=== PATIENT | female | born 1940 | race Caucasian/White ===

== ENCOUNTER 2024-05-07 16:34 | Emergency (ER) | payer OTHER, SELFPAY ==
[2024-05-07 16:36] VITALS: BP 189/91; BP 214/90
[2024-05-07 16:38] VITALS: BP 189/91
[2024-05-07 16:49] LABS: % Basophils 0.8 % (0-2); % Eosinophils 0.8 % (0-6); % Immature Granulocytes 0.2 % (0-0.5); % Lymphocytes 25.5 % (20.5-51.1); % Monocytes 12.6 % (1.7-9.3); % Neutrophils 60.1 % (42.2-75.2); Absolute Basophils 0.1 10^3/uL (0-0.2); Absolute Eosinophils 0.1 10^3/uL (0-0.7); Absolute Lymphocytes 1.6 10^3/uL (1.2-3.4); Absolute Monocytes 0.8 10^3/uL (0.1-0.6); Absolute Neutrophils 3.7 10^3/uL (1.4-6.5); Hemoglobin 13.2 g/dL (12.0-16.0); Mean Corpuscular Hgb 30.1 pg (27.0-31.0); Mean Corpuscular Volume 91.1 fL (81.0-99.0); Mean Platelet Volume 9.6 fL (7.4-10.4); Nucleated Red Blood Cells % 0 %; Platelet Count 195 10^3/uL (130-400); Red Blood Cell Count 4.39 10^6/uL (4.20-5.40); Red Cell Dist. Width 13.6 % (11.5-14.5); White Blood Cell Count 6.1 10^3/uL (4.8-10.8)
[2024-05-07 17:00] VITALS: BP 184/91
--- NOTE | 2024-05-07 17:04 | ED.GENMED ---
History of Present Illness
General
Chief Complaint: Chest Pain
Source: patient
Exam Limitations: none
Time Seen by Provider: 05/07/24 17:03
Nursing documentation reviewed up to this point in time: agreed with
History of Present Illness
History of Present Illness:
83-year-old female presents the emergency room complaining of right-sided chest pain that radiates into her neck that began last night. She notes she has been burping. The pain subsided once she got to the emergency department. She denies any
shortness of breath.
Past History
Past History
ED Past Medical History: Cancer (Thyroid cancer ), HTN, Hypercholesterolemia, NIDDM, Hypothyroidism and Other (Rheumatoid arthritis, Pancreatic cyst, Migraines, IBS, Peripheral Neuropathy)
ED Past Surgical History: Other (Thyroidectomy )
Social History
Tobacco: Non-smoker
Alcohol: None
Personal:
Living: with family
Employment: Retired
Review of Systems
Review of Systems
Allergies reviewed?: Yes
All Other Systems: Not applicable
Constitutional: Reports no symptoms
EENT: Reports no symptoms
Respiratory: Reports no symptoms
Cardiac: Reports chest pain
ABD/GI: Reports abdominal pain and nausea
: Reports no symptoms
Musculoskeletal: Reports no symptoms
Skin: Reports no symptoms
Neurological: Reports no symptoms
Endocrine: Reports no symptoms
Hematologic/Lymphatic: Reports no symptoms
Psychiatric: Reports no symptoms
Phy Exam
Physical Exam
Physical Exam:
Physical Exam
General: no apparent distress, not acutely ill
Neck: supple. no meningeal signs. normal posterior pharynx
Heart: s1/s2 regular rate and rhythm, no murmur. equal radial
pulses.
HEENT: Pupils equal round reactive to light, EOMI
Lungs: no acute respiratory distress. clear bilaterally
Abdomen: normal bowel sounds. not tender. no CVAT
Neuro: alert and oriented. no focal neurological deficits cranial nerves II through XII intact
Skin: no rash
Psychiatric: well kept. interactive and cooperative
Extremities: no edema. no calf tenderness. negative homans. good distal pulses
Scores
Heart Score for Chest Pain Patients
STEMI patient?: No
History: Slightly or Non-Suspicious
ECG: Normal
Age: >/= 65 years
Risk Factors: No Risk Factors
Troponin: </= Normal Limit
Heart Score for Chest Pain Patients: 2
Heart Score Risk: 2.5% MACE over next 6 weeks
Course
Orders/Labs/Results
Orders:
Orders
05/07/24 16:35
Electrocardiogram (*1) Urgent
Reason for Study: Chest Pain
Cardiac Monitoring- Treatment ONCE
EKG- Treatment ONCE
IV Insert/Care/Rem.- Treatment PRN
O2 Therapy [RESP] Urgent
Titrate/Wean O2 to maintain O2 sat greater than (%): 90
Special Instructions: Maintain sats >/=90%
Pulse Ox/spot Check [RESP] Urgent
Quantity: 1
Special Instructions: ON ROOM AIR
05/07/24 16:38
Complete Blood Count/With Diff Urgent
Troponin I Urgent
05/07/24 17:13
US Abdomen Complete/Upper Urgent
Comment:
Reason For Exam: RUQ pain
05/07/24 17:14
Add On- LAB Urgent
Tests Added?: lipase
05/07/24 17:33
Comprehensive Metabolic Panel Urgent
Lipase Urgent
Comment: ADD ON
Abnormal Lab Results
05/07/24 05/07/24
16:38 17:33
Absolute Monos (auto) 0.8 H 10^3/uL
(0.1-0.6)
Monocytes % 12.6 H %
(1.7-9.3)
BUN 18 H mg/dl
(7-17)
05/07/24 16:38
05/07/24 17:33
Vital Signs
Initial and Last Documented VS:
Initial Vital Signs
Temp Pulse Resp BP Pulse Ox
99.0 F 80 17 189/91 97
05/07/24 16:36 05/07/24 16:36 05/07/24 16:36 05/07/24 16:36 05/07/24 16:36
Last Documented Vital Signs
Temp Pulse Resp BP Pulse Ox
99.0 F 67 17 180/69 983
05/07/24 16:36 05/07/24 20:17 05/07/24 20:17 05/07/24 20:17 05/07/24 20:17
MDM/Problems Addressed
Differential Diagnosis Includes:
Pancreatitis, CVA, gastritis, ACS
MDM/Problems Addressed:
83-year-old female with epigastric/right upper quadrant abdominal pain. No acute findings on labs. CT normal. Do not suspect dissection or ACS. Patient stable for discharge. Follow-up with primary care.
*Radiology
Radiology exam reviewed: radiology read reviewed (Ultrasound abdomen no acute findings)
*Pulse Oximetry
Patient hypoxic: no
*EKG
Interpreted by ED Provider?: Yes
EKG Intrepretation Date: 05/07/24
EKG Intrepretation Time: 16:44
Interpretation: abnormal
Comparison EKG: no comparison EKG present
Heart Rate: 56
Rate: bradycardiac
Rhythm: sinus
[place]: normal axis
Interval: normal interval
QRS Pattern: normal QRS
Ischemia: no ischemia
*Attending Radiologist Interpretation
Rate: normal
Interpretation: normal
Heart Rate: 70
Rhythm: sinus
*Critical Care Note
Total Time (30-74mins, 75-104mins- exclusive of procedures): Not Applicable
Patient Management
Social determinants of health affecting care: Living situation and Strong social support
Escalation/DeEscalation of care consider admission/obs:
Admit not indicated
ED Attending Note
-
Portions of this chart may have been created with voice recognition software.� Occasional wrong word or��sound alike� substitutions may have occurred due to the inherent limitations of voice recognition software.
Discharge Plan
Departure
Patient Disposition: Home (Routine Discharge)
Date of Disposition: 05/07/24
Time of Disposition: 20:23
Patient with high blood pressure during this ER visit?: Yes
Condition: Good
Discharge Problem:
Chest pain, Acute epigastric pain
Instructions: Chest Pain DCA Follow Up, BLOOD PRESSURE
Prescriptions:
No Action
levothyroxine [Tirosint] 100 MCG capsule
100 mcg PO DAILY
amlodipine 2.5 MG tablet
2.5 mg PO HS
cyclobenzaprine 10 MG tablet
10 mg PO HS Qty: 5 0RF
Referrals:
Marylou Jimenez MD [Family Provider] - Call in 1-3 days for appt
Interventions
Interventions:
*Risk Screen - Suicide Last Done: 05/07/24 16:36
*General Assessment Last Done: 05/07/24 16:36
*Neglect/Abuse Screening Last Done: 05/07/24 16:36
ED- Fall Risk Assessment Last Done: 05/07/24 16:36
ED- Cardiac Assessment Last Done: 05/07/24 16:36
Discharge Date and Time
Print Language: ANGUILLAN
[2024-05-07 17:10] LABS: Troponin I < 0.012 ng/ml
[2024-05-07 17:57] LABS: ALT (SGPT) 16 U/L (0-35); AST (SGOT) 29 U/L (14-36); Albumin 4.2 g/dl (3.5-5.0); Alkaline Phosphatase 59 U/L (38-126); Blood Urea Nitrogen 18 mg/dl (7-17); Calcium 9.2 mg/dl (8.4-10.2); Carbon Dioxide 29 mmol/L (22-30); Chloride 100 mmol/L (98-107); Glucose 97 mg/dl (70-99); Lipase 48 U/L (23-300); Potassium 4.3 mmol/L (3.5-5.1); Sodium 138 mmol/L (135-145); Total Bilirubin 0.7 mg/dl (0.2-1.3); Total Protein 6.7 g/dl (6.3-8.2); eGFR > 60.00
[2024-05-07 18:00] VITALS: BP 189/68
[2024-05-07 20:17] VITALS: BP 180/69
== END 2024-05-07 21:09 | disposition home or self-care (01) ==
LOC: EMR 16:34
PROVIDERS: Emergency Medicine; EMERGENCY PHYSICIAN Emergency Medicine; FAMILY PHYSICIAN Student in an Organized Health Care Education/Training Program
DX: R07.89 Other chest pain (principal); R10.13 Epigastric pain; R10.11 Right upper quadrant pain; R11.0 Nausea; M54.2 Cervicalgia; I10 Essential (primary) hypertension; E11.42 Type 2 diabetes mellitus with diabetic polyneuropathy; E03.9 Hypothyroidism, unspecified; E78.00 Pure hypercholesterolemia, unspecified; M06.9 Rheumatoid arthritis, unspecified; K58.9 Irritable bowel syndrome, unspecified; G43.909 Migraine, unspecified, not intractable, without status migrainosus; K86.2 Cyst of pancreas; Z85.850 Personal history of malignant neoplasm of thyroid; Z88.5 Allergy status to narcotic agent; Z88.8 Allergy status to other drugs, medicaments and biological substances; Z91.048 Other nonmedicinal substance allergy status
CPT/HCPCS: 99285; 94760; 76700; 80053; 83690; 84484; 85025; 93005